=== PATIENT | male | born 1985 | race Caucasian/White ===

== ENCOUNTER 2017-09-12 20:10 | Emergency (ER) | payer MEDICARE, OTHER ==
[~2017-09-12] VITALS: Ht 182.9 cm; Wt 120.5 kg
[~2017-09-12 20:10] MED LIST: BENTYL 20MG20 MG/TAB PO; CITRACAL + D CA1 TAB PO; DUO-KAPS1 CAP PO; LAMICTAL200 MG PO; MINIPRESS 5M5 MG/CAP PO; NEURONTIN100 MG/CAP PO; REMERON 15M15 MG/TA1 PO; SEROQUEL 1100 MG/TAB PO; SUPER B COMPLEX1 TA2 PO; VIIBRYD40 MG PO
[2017-09-12 20:13] VITALS: TEMP 98.7
[2017-09-12 21:12] LABS: COLLECTION METHOD CLEAN CATCH
[2017-09-12 21:17] LABS: PH 7 (5-8); SQUAMOUS EPITHELIAL None Seen /hpf; URINE APPEARANCE Clear; URINE BACTERIA None Seen /hpf; URINE BILIRUBIN Negative (NEGATIVE); URINE BLOOD Negative (NEGATIVE); URINE COLOR Yellow; URINE GLUCOSE Negative (NEGATIVE); URINE KETONE Negative (NEGATIVE); URINE LEUKOCYTE ESTERASE Negative (NEGATIVE); URINE NITRATE Negative (NEGATIVE); URINE PROTEIN(semi-quant) Negative (NEGATIVE); URINE RBC None Seen /hpf; URINE UROBILINOGEN Negative (NEGATIVE)
[2017-09-12] MEDS ORDERED: MELAT3MGTAB (21:35)
[2017-09-12] MEDS ORDERED: PRAVACHOL 20MG20 MG PO (21:35)
[2017-09-12] MEDS ORDERED: TEGRETOL 1100 MG/TAB PO (21:36)
[2017-09-12] MEDS ORDERED: NEURONTIN600 MG/TAB PO (21:36)
[2017-09-12] MEDS ORDERED: NEURONTIN300 MG/CAP PO (21:36)
[2017-09-12] MEDS ORDERED: MINIPRESS 5M5 MG/CAP PO (21:37)
[2017-09-12] MEDS ORDERED: ABILIFY 10MG TA10 MG PO (21:37)
[2017-09-12] MEDS ORDERED: REMERON30 MG PO (21:38)
[2017-09-12] MEDS ORDERED: VALIUM 5MG T5 MG/TAB PO (23:09)
[2017-09-12 23:15] VITALS: BP 128/71; PULSE 71
== END 2017-09-12 23:30 | disposition home or self-care (01) ==
LOC: COL.ER 20:10
PROVIDERS: Emergency Medicine
DX: S09.90XA Unspecified injury of head, initial encounter (principal); H61.21 Impacted cerumen, right ear; R42 Dizziness and giddiness; W18.30XA Fall on same level, unspecified, initial encounter; W22.03XA Walked into furniture, initial encounter; Y92.009 Unspecified place in unspecified non-institutional (private) residence as the place of occurrence of the external cause
CPT/HCPCS: J1885